=== PATIENT | female | born 1930 | race African-American/Black ===

== ENCOUNTER 2020-10-16 14:43 | Emergency (ER) | payer MEDICARE, MEDICAID ==
[~2020-10-16] VITALS: Ht 149.9 cm; Wt 62.0 kg
[~2020-10-16 14:43] MED LIST: ASPI-986 PO; ATOR20TA65 PO; CARV25TA47 PO; CLON0.1T PO; CLOP75TA33 PO; FERR-43 PO; FURO40TA5 PO; HYDR-4134 PO; OMEP20TA2 PO; OXYB5TAB17 PO; VALS320T16 PO; [UNRECOGNIZED DRUG - OTHER] PO
[2020-10-16 20:34] LABS: BASOPHILS % 0.9 % (0.0-2.0); EOSINOPHILS % 1.6 % (0.0-5.0); LYMPHOCYTES % 17.9 % (20.0-50.0); MEAN CORPUSCULAR HEMOGLOBIN 31.7 pg (28.0-32.0); MEAN CORPUSCULAR VOLUME 94.8 fL (81.0-99.0); MEAN PLATELET VOLUME 9.2 fl (7.4-10.4); MONOCYTES % 7.5 % (2.0-8.0); NEUTROPHILS % 72.1 % (40.0-76.0); PLATELET 285 x1000/uL (130-400); RED BLOOD CELL COUNT 2.85 mill/uL (4.2-5.4); RED CELL DISTRIBUTION WIDTH 15.3 % (11.6-14.6)
[2020-10-16 20:41] LABS: CHLORIDE 107 mEq/L (98-107)
[2020-10-16 20:49] LABS: INR 1.1; PROTHROMBIN TIME 11.3 sec (9.6-11.0)
[2020-10-16 22:08] VITALS: BP 164/83
== END 2020-10-16 22:26 | disposition home or self-care (01) ==
LOC: ER 14:43 → SUPCPDRO 15:35 → ER 22:26 → CANBEDREQ 23:54
DX: D64.9 Anemia, unspecified (principal); I10 Essential (primary) hypertension; Z95.0 Presence of cardiac pacemaker; Z98.890 Other specified postprocedural states; Z79.899 Other long term (current) drug therapy; Z88.8 Allergy status to other drugs, medicaments and biological substances
CPT/HCPCS: 36415; 71045; 80053; 85025; 86850; 86870; 86900; 93005; 99285